=== PATIENT | female | born 1995 | race Asian ===

== ENCOUNTER → 2016-11-02 | Outpatient (CLI) | payer OTHER ==
[~2016-11-02] MED LIST: Antidepressant PO
--- NOTE | 2016-11-02 20:38 | DIAGNOSTIC IMAGING REPORT ---
LUMBAR SPINE MRI HISTORY: LOW BACK PAIN TECHNIQUE: Multiplanar multisequence MRI of the lumbar spine was performed without the use of contrast. COMPARISON: None. FINDINGS: For the purpose of the report the L5-S1 disc space will be located on axial image 23 of 25. Alignment and curvature are intact. No fractures. The conus terminates at the L1 level. Mild disc space narrowing and disc desiccation at L4-L5. The paraspinal soft tissues are unremarkable. L1-L2: No significant central canal or neural foraminal narrowing. L2-L3: No significant central canal or neural foraminal narrowing. L3-L4: No significant central canal or neural foraminal narrowing. L4-L5: Small focal central disc protrusion without significant central canal or neural foraminal narrowing. L5-S1: Tiny focal central disc protrusion without significant central canal or neural foraminal narrowing. IMPRESSION: 1. Small focal central disc protrusion at L4-L5 without significant central canal or neural foraminal narrowing. 2. Tiny focal central disc protrusion at L5-S1 without significant central canal or neural foraminal narrowing. Electronically signed by: Ramana Lockhart M.D. 11/02/2016 8:37 PM Dictated Date/Time: 11/02/2016 8:32 PM
== END | disposition home or self-care (01) ==
LOC: C.MRI 16:09
PROVIDERS: ATTEND Family Medicine Sports Medicine
DX: M54.5 Low back pain (principal)

== ENCOUNTER 2017-06-10 13:37 | Emergency (ER) | payer OTHER ==
[~2017-06-10] VITALS: Ht 165.1 cm; Wt 60.1 kg
[2017-06-10 13:53] VITALS: TEMP 37.3; Ht 165.1 cm; Wt 60.1 kg
[2017-06-10 15:00] LABS: BASO % 0.6 %; BASO ABS # 0.03 K/uL (0-0.2); COMPLETE YES; IG% 0.2 %; LYMPH % 35.6 %; MEAN CELL VOLUME 88.4 fL (80-100); MEAN CORPUSCULAR HEMOGLOBIN 30.2 pg (25-34); MEAN CORPUSCULAR HGB CONC 34.2 g/dl (32-36); MEAN PLATELET VOLUME 10.5 fL (7.4-10.4); MONO % 7.5 %; NEUT % 52.1 %; PLATELET COUNT 312 K/uL (130-400); WHITE BLOOD COUNT 5.06 K/uL (4.8-10.8)
[2017-06-10] MEDS ORDERED: XYLOCAINE 1%/SOD BICARB 20 ML VIAL INFIL ONE (15:00)
--- NOTE | 2017-06-10 15:00 | EMERGENCY ROOM VISIT NOTE ---
History Report prepared by Susie: Kacey Enriquez Under the Supervision of: Dr. Kat Spence M.D. First contact with patient: 14:12 Chief Complaint: MENTAL HEALTH EVALUATION Stated Complaint: LAC TO UPPER L ARM History of Present Illness The patient is a 21 year old female who presents to the Emergency Room with complaints of a laceration around 30 minutes ago. The patient has been feeling frustrated with her relationship for the past 3 weeks. She has been getting into arguments. She cut her left shoulder in frustration today. She has a history of depression. She is currently being treated at [facility]. She is on medications. She would just like stitches. She denies any suicidal thoughts today or suicidal intent with her laceration today. She has cut in the past. She has not had inpatient psychiatric care before. She last had some suicidal thoughts last week. She did not have a plan. She denies any drug or alcohol use. She denies any Tylenol or aspirin use. Her tetanus is up to date. Source of History: patient Onset: 30 minutes ago Position: arm (left) Quality: other (laceration) Timing: other (episodic) Note: Pt admits to suicidal thoughts in the past. Pt denies suicidal intent. Review of Systems See HPI for pertinent positives & negatives. A total of 10 systems reviewed and were otherwise negative. Past Medical & Surgical Medical Problems: (1) Depression Family History No pertinent family history stated. Social History Smoking Status: Never Smoker Alcohol Use: occasionally Drug Use: none Occupation Status: [employer] student Current/Historical Medications Scheduled [Antidepressant], 1 DOSE PO QAM Allergies Coded Allergies: No Known Allergies (Unverified , 07/09/16) Physical Exam Vital Signs Date Time Temp Pulse Resp B/P (MAP) Pulse Ox O2 Delivery O2 Flow Rate FiO2 06/10/17 16:24 75 16 120/72 97 06/10/17 13:53 37.3 76 18 125/87 96 Room Air Physical Exam Vital signs reviewed. General: Well-appearing female, in no significant distress. HEENT: No scleral icterus, PERRLA, neck supple. Atraumatic. Cardiovascular: Regular rate and rhythm, no extra sounds. Pulmonary: Clear to auscultation bilaterally, normal work of breathing. Abdomen: Soft, nontender, nondistended, positive bowel sounds. Musculoskeletal: 2 cm laceration to the left deltoid region. No peripheral edema. Neurologic: Patient awake alert and oriented x 3 Skin: Warm, dry, no rash Psych: Denies suicidal thoughts currently, admits to passive suicidal thoughts previously, denies homicidal thoughts. Medical Decision & Procedures Laboratory Results 06/10/17 14:45 Red Blood Count 4.30, Mean Corpuscular Volume 88.4, Mean Corpuscular Hemoglobin 30.2, Mean Corpuscular Hemoglobin Concent 34.2, Mean Platelet Volume 10.5, Neutrophils (%) (Auto) 52.1, Lymphocytes (%) (Auto) 35.6, Monocytes (%) (Auto) 7.5, Eosinophils (%) (Auto) 4.0, Basophils (%) (Auto) 0.6, Neutrophils # (Auto) 2.64, Lymphocytes # (Auto) 1.80, Monocytes # (Auto) 0.38, Eosinophils # (Auto) 0.20, Basophils # (Auto) 0.03 06/10/17 14:45 Test 06/10/17 00:00 06/10/17 14:45 Urine Test NEG (NEG) White Blood Count 5.06 K/uL (4.8-10.8) Red Blood Count 4.30 M/uL (4.2-5.4) Hemoglobin 13.0 g/dL (12.0-16.0) Hematocrit 38.0 % (37-47) Mean Corpuscular Volume 88.4 fL (80-100) Mean Corpuscular Hemoglobin 30.2 pg (25-34) Mean Corpuscular Hemoglobin Concent 34.2 g/dl (32-36) Platelet Count 312 K/uL (130-400) Mean Platelet Volume 10.5 fL (7.4-10.4) Neutrophils (%) (Auto) 52.1 % Lymphocytes (%) (Auto) 35.6 % Monocytes (%) (Auto) 7.5 % Eosinophils (%) (Auto) 4.0 % Basophils (%) (Auto) 0.6 % Neutrophils # (Auto) 2.64 K/uL (1.4-6.5) Lymphocytes # (Auto) 1.80 K/uL (1.2-3.4) Monocytes # (Auto) 0.38 K/uL (0.11-0.59) Eosinophils # (Auto) 0.20 K/uL (0-0.5) Basophils # (Auto) 0.03 K/uL (0-0.2) RDW Standard Deviation 43.0 fL (36.4-46.3) RDW Coefficient of Variation 13.2 % (11.5-14.5) Immature Granulocyte % (Auto) 0.2 % Immature Granulocyte # (Auto) 0.01 K/uL (0.00-0.02) Urine Color YELLOW Urine Appearance CLEAR (CLEAR) Urine pH 6.5 (4.5-7.5) Urine Specific [place] 1.023 (1.000-1.030) Urine Protein NEG (NEG) Urine Glucose (UA) NEG (NEG) Urine Ketones NEG (NEG) Urine Occult Blood 2+ (NEG) Urine Nitrite NEG (NEG) Urine Bilirubin NEG (NEG) Urine Urobilinogen NEG (NEG) Urine Leukocyte Esterase NEG (NEG) Urine WBC (Auto) 1-5 /hpf (0-5) Urine RBC (Auto) 0-4 /hpf (0-4) Urine Hyaline Casts (Auto) 1-5 /lpf (0-5) Urine Epithelial Cells (Auto) >30 /lpf (0-5) Urine Bacteria (Auto) NEG (NEG) Anion Gap 8.0 mmol/L (3-11) Est Creatinine Clear Calc Drug Dose 122.2 ml/min Estimated GFR () 146.1 Estimated GFR (Non- 126.0 BUN/Creatinine Ratio 13.8 (10-20) Calcium Level 9.3 mg/dl (8.5-10.1) Total Bilirubin 0.4 mg/dl (0.2-1) Direct Bilirubin 0.1 mg/dl (0-0.2) Aspartate Amino Transf (AST/SGOT) 11 U/L (15-37) Alanine Aminotransferase (ALT/SGPT) 17 U/L (12-78) Alkaline Phosphatase 55 U/L (45-117) Total Protein 8.4 gm/dl (6.4-8.2) Albumin 4.2 gm/dl (3.4-5.0) Thyroid Stimulating Hormone (TSH) 2.150 uIu/ml (0.300-4.500) Salicylates Level < 1.7 mg/dl (2.8-20) Urine Opiates Screen NEG (NEG) Urine Methadone, Qualitative NEG (NEG) Acetaminophen Level < 2 ug/ml (10-30) Urine Barbiturates NEG (NEG) Urine Phencyclidine (PCP) Level NEG (NEG) Ur Amphetamine/Methamphetamine NEG (NEG) MDMA (Ecstasy) Screen POS (NEG) Urine Benzodiazepines Screen NEG (NEG) Urine Cocaine Metabolite NEG (NEG) Urine Marijuana (THC) NEG (NEG) Ethyl Alcohol mg/dL < 3.0 mg/dl (0-3) Laboratory results per my review. ED Course 1440: Past medical records reviewed. The patient was evaluated in room A8. A complete history and physical examination was performed. 1545: The laceration was repaired by Hector Scherer PA-C. See his note for details. 1558: Upon reevaluation, the patient was resting comfortably. I discussed findings with her. She verbalized agreement of the treatment plan. She was discharged home. Medical Decision Differential diagnosis: Etiologies such as mood disorder, infection, hypoglycemia, electrolyte abnormalities, cardiac sources, intracerebral event, toxicologic, neurologic, as well as others were entertained. This patient was evaluated and appeared to be in no significant distress. Physical examination reveals a laceration to the left deltoid region. Patient admits that this was self-inflicted. She does not have suicidal thoughts at this time. She states she is frustrated by relationship issues. The patient is agitated stating that she has a course to touch shortly. She does not feel suicidal and does not want mental health treatment. She has had positive SI in the past, but denies this acutely. She has psychiatric care established and will follow-up this week. Wound was approximated by Hector Scherer PA-C. Please see his notes for details of the procedure. The patient states her tetanus is up-to-date. She will return to the ER for worsening of symptoms or any medical concerns. Medication Reconcilliation Current Medication List: was personally reviewed by me Blood Pressure Screening Patient's blood pressure: Normal blood pressure Blood pressure disposition: Did not require urgent referral Impression Primary Impression: Self mutilating behavior Scribe Attestation The scribe's documentation has been prepared under my direction and personally reviewed by me in its entirety. I confirm that the note above accurately reflects all work, treatment, procedures, and medical decision making performed by me. Departure Information Dispostion Home / Self-Care Referrals [facility] (PCP) Forms HOME CARE DOCUMENTATION FORM, IMPORTANT VISIT INFORMATION Patient Instructions My [facility] Additional Instructions Diagnosis: Self mutilating behavior Please follow-up with [facility] for suture removal and reevaluation. Contact your mental health provider this week for follow-up. Keep wound clean and dry. No water on the area for 12-24 hrs then no soaking until sutures removed. Do not allow any crusting or dried blood to accumulate on sutures. If this occurs, use a 1:1 solution of hydrogen peroxide/water on a Q-tip to clean the wound. Use an antibiotic ointment for 3-4 days, then let wound dry. Suture removal in 7-10 days. Follow up sooner for any signs of infection (increasing redness, swelling, drainage). Ice and elevate for swelling and pain. Ibuprofen 600 mg and Tylenol 650 mg every 6 hrs for pain. Keep covered when in sun until sutures removed then SPF 50 or higher for one year. Vitamin E oil if desired two weeks after suture removal for reduction of scar. Return to the emergency department for worsening of symptoms or any medical concerns.
[2017-06-10] MEDS ORDERED: Antidepressant PO (15:04)
[2017-06-10 15:10] LABS: URINE APPEARANCE CLEAR (CLEAR); URINE BILIRUBIN NEG (NEG); URINE COLOR YELLOW; URINE EPITHELIAL CELL AUTO >30 /lpf (0-5); URINE NITRITE NEG (NEG); URINE PH 6.5 (4.5-7.5); URINE SPECIFIC GRAVITY 1.023 (1.000-1.030); UROBILINOGEN NEG (NEG); ZZUR CULT IF INDIC CLEAN CATCH NO
[2017-06-10 15:17] LABS: MANUAL MICROSCOPIC REQUIRED? NO; REVIEW REQ? NO
[2017-06-10 15:22] LABS: PREG INTERNAL NEGATIVE QC NEG CLEAR BACKGROUND; PREG INTERNAL POSITIVE QC POS CONTROL LINE
[2017-06-10 15:26] LABS: BUN/CREATININE RATIO 13.8 (10-20); CALCIUM 9.3 mg/dl (8.5-10.1); CREATININE 0.65 mg/dl (0.60-1.20); POTASSIUM 3.9 mmol/L (3.5-5.1)
[2017-06-10 15:30] LABS: ACETAMINOPHEN < 2 ug/ml (10-30)
[2017-06-10 15:37] LABS: BENZODIAZEPINE, URINE NEG (NEG); COCAINE,URINE NEG (NEG); PHENCYCLIDINE, URINE NEG (NEG); THYROID STIMULATING HORMONE 2.15 uIu/ml (0.300-4.500)
[2017-06-10 16:24] VITALS: BP 120/72; PULSE 75; O2SAT 97
--- NOTE | 2017-06-10 23:11 | EMERGENCY ROOM VISIT NOTE ---
ED Visit Note Emergency Department Procedure Note I was asked to see Ms. Bradford by Dr. Spence for repair of a left upper arm laceration. Please see Dr. Spence's ED notes for full information about her emergency department visit her Wound Repair: Complexity: Basic Description: 3.3 cm full-thickness laceration over the proximal aspect of the left humerus. No active bleeding. Verbal consent was obtained after the risks and benefits were explained. The skin was prepped with betadine and a sterile field set. Wound edges of the wound was anesthetized with 3.6 ml buffered 1% lidocaine. The wound was explored for foreign bodies and none found. Copious irrigation was performed using sterile saline. With direct pressure the bleeding subsided. Debridement was not performed. The wound edges were approximated using 5-0 Ethilon with 7 simple interrupted sutures. Hemostasis and excellent approximation was achieved. Antibacterial ointment and a sterile dressing applied. No complications and the patient tolerated the procedure well.
[2017-06-19 08:31] LABS: SYNTHETIC CANNABINOIDS QL URIN NEGATIVE (Negative)
== END 2017-06-10 16:25 | disposition home or self-care (01) ==
LOC: C.EDB 13:38 → C.EDA 16:25
DX: Z72.89 Other problems related to lifestyle (principal); S41.112A Laceration without foreign body of left upper arm, initial encounter; X58.XXXA Exposure to other specified factors, initial encounter; F32.9 Major depressive disorder, single episode, unspecified